=== PATIENT | female | born 1960 | race Caucasian/White ===

== ENCOUNTER 2018-01-02 08:28 | Outpatient (CLI) | payer MEDICARE, OTHER ==
[2018-01-02 09:00] LABS: HEMATOCRIT 44.3 % (36.0-47.0); HEMOGLOBIN 14.8 g/dL (12.0-15.5); MEAN CORPUSCULAR HEMOGLOBIN 30 pg (25-35); MEAN CORPUSCULAR HGB CONC 33 g/dL (31-37); MEAN CORPUSCULAR VOLUME 89 fL (79-100); PLATELET COUNT 240 x10^3/uL (140-400); RED BLOOD COUNT 4.98 x10^6/uL (3.50-5.40); RED CELL DISTRIBUTION WIDTH 15.3 % (11.5-14.5); WHITE BLOOD COUNT 8.1 x10^3/uL (4.0-11.0)
[2018-01-02] MEDS ORDERED: LIDOCAINE 2% 20 ML VIAL. (09:06)
[2018-01-02 09:20] LABS: PROTHROMBIN TIME PATIENT 12.3 SEC (11.7-14.0)
[2018-01-02 09:39] LABS: BLOOD UREA NITROGEN 12 mg/dL (7-20); CREATININE 0.7 mg/dL (0.6-1.0); GFR 86.6
[2018-01-02 09:43] LABS: ANION GAP 9 (6-14); CALCIUM 8.9 mg/dL (8.5-10.1); CARBON DIOXIDE 25 mmol/L (21-32); CHLORIDE 103 mmol/L (98-107); GLUCOSE 104 mg/dL (70-99); POTASSIUM 4.1 mmol/L (3.5-5.1); SODIUM 137 mmol/L (136-145)
[2018-01-02] MEDS ORDERED: HEPARIN for IV BOLUS 10,000 UNIT/10 ML VIAL. (09:44)
[2018-01-02] MEDS ORDERED: NITROGLYCERIN 200 MCG/2 ML SYRINGE FOR CATH/VASC LAB. (09:44)
[2018-01-02] MEDS ORDERED: MIDAZOLAM HCL/PF 5 MG/5 ML VIAL. (09:44)
[2018-01-02] MEDS ORDERED: fentaNYL PF VIAL 100 MCG/2 ML VIAL (09:44)
[2018-01-02] MEDS ORDERED: VERAPAMIL 5 MG/2 ML VIAL. (09:44)
[2018-01-02] MEDS ORDERED: IV 1/2 NORMAL SALINE 1,000 ML IV (10:28)
[2018-01-02] MEDS ORDERED: NITROGLYCERIN SUBLINGUAL 0.4 MG BOTTLE OF 25. SL (10:30)
[2018-01-02] MEDS: LIDOCAINE 2% 20 ML VIAL. IJ (10:36)
[2018-01-02] MEDS: IODIXANOL 320 MG/ML 100 ML VIAL. IART (10:36)
[2018-01-02] MEDS: NITROGLYCERIN 200 MCG/2 ML SYRINGE FOR CATH/VASC LAB. IART (10:36)
[2018-01-02] MEDS: fentaNYL PF VIAL 100 MCG/2 ML VIAL IV (10:37)
[2018-01-02] MEDS: VERAPAMIL 5 MG/2 ML VIAL. IART (10:37)
[2018-01-02] MEDS: MIDAZOLAM HCL/PF 5 MG/5 ML VIAL. IV (10:37)
[2018-01-02] MEDS: HEPARIN for IV BOLUS 10,000 UNIT/10 ML VIAL. IART (10:38)
[2018-01-02] MEDS: oxyCODONE ER 10 MG TAB.ER.12H PO (11:10)
== END 2018-01-02 13:16 | disposition home or self-care (01) ==
LOC: CCL 08:28
DX: I25.10 Atherosclerotic heart disease of native coronary artery without angina pectoris (principal); Z88.5 Allergy status to narcotic agent; Z91.030 Bee allergy status; J44.9 Chronic obstructive pulmonary disease, unspecified; Z90.49 Acquired absence of other specified parts of digestive tract; Z90.710 Acquired absence of both cervix and uterus; M51.26 Other intervertebral disc displacement, lumbar region; E03.9 Hypothyroidism, unspecified; F32.9 Major depressive disorder, single episode, unspecified; Z98.890 Other specified postprocedural states; M19.90 Unspecified osteoarthritis, unspecified site; Z79.82 Long term (current) use of aspirin; Z96.642 Presence of left artificial hip joint; G47.33 Obstructive sleep apnea (adult) (pediatric); I35.0 Nonrheumatic aortic (valve) stenosis; Z98.49 Cataract extraction status, unspecified eye; F17.210 Nicotine dependence, cigarettes, uncomplicated
CPT/HCPCS: 36415; 80048; 85027; 85610; 93458; 99152; 99153; C1769; C1892; J1644; J2250; J3010; J3490